=== PATIENT | male | born 1970 | race Caucasian/White ===

== ENCOUNTER 2019-04-06 17:03 | Emergency (ER) | payer BC, SELFPAY ==
[2019-04-06] MEDS ORDERED: Acetaminophen 500 MG TAB ONE (17:20)
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
== END 2019-04-06 20:03 | disposition home or self-care (01) ==
LOC: ERS 17:03
DX: S39.012A Strain of muscle, fascia and tendon of lower back, initial encounter (principal); Z87.891 Personal history of nicotine dependence; V43.93XA Unspecified car occupant injured in collision with pick-up truck in traffic accident, initial encounter
CPT/HCPCS: 70450; 71260; 72125; 74177